=== PATIENT | female | born 1970 | race Caucasian/White ===

== ENCOUNTER 2017-06-02 09:00 | Emergency (ER) | payer MEDICAID ==
[2017-06-02] MEDS: predniSONE 20 MG TAB PO (09:57)
== END 2017-06-02 10:56 | disposition home or self-care (01) ==
LOC: E/R 09:00
DX: G51.0 Bell's palsy (principal); R53.1 Weakness; I10 Essential (primary) hypertension; E11.9 Type 2 diabetes mellitus without complications; Z79.84 Long term (current) use of oral hypoglycemic drugs
CPT/HCPCS: 82962; 99283